=== PATIENT | male | born 1940 | race Caucasian/White ===

== ENCOUNTER 2020-11-27 01:02 | Emergency (ER) | payer MEDICARE, OTHER ==
[~2020-11-27] VITALS: Ht 175.3 cm; Wt 66.2 kg
[2020-11-27] MEDS ORDERED: CLOPIDOGREL75 MG PO (01:31)
[2020-11-27] MEDS ORDERED: CENTRUM SILVER1 EAC3 PO (01:31)
[2020-11-27] MEDS ORDERED: LIPITOR80 MG PO (01:32)
[2020-11-27] MEDS ORDERED: PROCARDIA XL30 MG PO (01:32)
[2020-11-27] MEDS ORDERED: LISINOPRIL10 MG PO (01:33)
[2020-11-27] MEDS ORDERED: LOSARTAN POTASS25 MG PO (06:59)
--- NOTE | 2020-11-27 13:48 | EKG ---
[facility] [address] [facility] [place], [place] [address] Signed Sinus rhythm with occasional premature ventricular complexes and premature atrial complexes Right bundle branch block Left anterior fascicular block Bifascicular block Left ventricular hypertrophy with repolarization abnormality Cannot rule out Septal infarct , age undetermined Abnormal ECG No previous ECGs available Confirmed by TITUS SELF DO ([id number]) on 11/27/2020 1:47:56 PM Electronically Signed By: TITUS SELF DO 11/27/20 1348 PATIENT NAME: MIMA [place] [facility] [place] DATE OF : 40 PHYSICIAN: TITUS SELF DO REPORT #: [id number] REPORT IS CONFIDENTIAL AND NOT TO BE RELEASED WITHOUT AUTHORIZATION
== END 2020-11-27 08:31 | disposition short-term general hospital (02) ==
LOC: ED 01:02
DX: R07.89 Other chest pain (principal); I12.9 Hypertensive chronic kidney disease with stage 1 through stage 4 chronic kidney disease, or unspecified chronic kidney disease; N18.1 Chronic kidney disease, stage 1; F17.200 Nicotine dependence, unspecified, uncomplicated; Z79.899 Other long term (current) drug therapy; Z91.011 Allergy to milk products; Z20.822 Contact with and (suspected) exposure to COVID-19
CPT/HCPCS: 71045; 80053; 84484; 85025; 85379; 93005; 93010; 99285-25; C9803; U0003